=== PATIENT | female | born 1985 | race Caucasian/White ===

== ENCOUNTER 2017-03-20 09:38 | Emergency (ER) | payer MEDICAID ==
[~2017-03-20] VITALS: Ht 162.6 cm; Wt 43.2 kg
[2017-03-20 10:14] VITALS: BP 123/79
[2017-03-20] MEDS ORDERED: SODIUM CHLORIDE 0.9% 1,000 ML IV ONE (10:21)
== END 2017-03-20 10:25 | disposition home or self-care (01) ==
LOC: EMS 09:40
DX: G51.0 Bell's palsy (principal)
CPT/HCPCS: 99283; J7030